=== PATIENT | female | born 1945 | race Two or more races ===

== ENCOUNTER 2023-05-09 20:30 | Emergency (ER) | payer OTHER ==
[~2023-05-09] VITALS: Ht 149.9 cm; Wt 54.4 kg
== END 2023-05-09 23:34 | disposition home or self-care (01) ==
LOC: ER 20:30
DX: S01.91XA Laceration without foreign body of unspecified part of head, initial encounter (principal); S14.109A Unspecified injury at unspecified level of cervical spinal cord, initial encounter; W18.30XA Fall on same level, unspecified, initial encounter; Y93.9 Activity, unspecified; Y92.012 Bathroom of single-family (private) house as the place of occurrence of the external cause; Y99.9 Unspecified external cause status; Z20.822 Contact with and (suspected) exposure to COVID-19

== ENCOUNTER 2023-05-19 10:01 | Emergency (ER) | payer OTHER ==
[~2023-05-19] VITALS: Ht 152.4 cm; Wt 56.7 kg
== END 2023-05-19 10:31 | disposition home or self-care (01) ==
LOC: ER 10:01
DX: Z48.02 Encounter for removal of sutures (principal)

== ENCOUNTER 2024-08-04 10:30 | Emergency (ER) | payer OTHER ==
[~2024-08-04] VITALS: Ht 152.4 cm; Wt 63.5 kg
== END 2024-08-04 14:59 | disposition home or self-care (01) ==
LOC: ER 10:32
DX: S00.83XA Contusion of other part of head, initial encounter (principal); W06.XXXA Fall from bed, initial encounter; Y93.89 Activity, other specified; Y92.89 Other specified places as the place of occurrence of the external cause; Y99.8 Other external cause status